=== PATIENT | male | born 1970 | race Caucasian/White ===

== ENCOUNTER 2017-09-08 19:48 | Inpatient (IN) | payer SELFPAY ==
[2017-09-08 21:00] LABS: Anion Gap 11 mmol/L (10-20); BUN (Urea Nitrogen) 23 mg/dL (8.9-20.6); CK (CPK) 669 U/L (30-200); Calc. Creatinine Clearance 0 mL/min (70-130); Calcium 8.5 mg/dL (7.8-10.44); Carbon Dioxide 25 mmol/L (22-29); Chloride 106 mmol/L (98-107); Estimated GFR-MDRD 79; Glucose 84 mg/dL (70-105); Potassium 3.9 mmol/L (3.5-5.1); Sodium 138 mmol/L (136-145)
[2017-09-08 22:49] LABS: ALT (SGPT) 55 U/L (8-55); AST (SGOT) 45 U/L (5-34); Albumin 3.9 g/dL (3.5-5.0); Alkaline Phosphatase 86 U/L (40-150); Bilirubin, Direct 0.2 mg/dL (0.1-0.3); Bilirubin, Total 0.4 mg/dL (0.2-1.2); Protein, Total 6.6 g/dL (6.0-8.3)
[2017-09-08] MEDS ORDERED: Ondansetron ODT 4 MG TAB SL PRN (22:49)
[2017-09-08] MEDS ORDERED: Ondansetron HCl/PF 4 MG/2 ML Vial IVP PRN (22:49)
[2017-09-08] MEDS ORDERED: Acetaminophen 325 MG TAB PO PRN (22:49)
[2017-09-08 22:54] LABS: Troponin I 0.031 ng/mL (< 0.028)
[2017-09-08 23:04] LABS: CKMB 13.1 ng/mL (0-6.6)
[2017-09-08 23:06] VITALS: BMI 29.1
[2017-09-08] MEDS ORDERED: hydrALAZINE 20 MG/ML VIAL SLOW IVP PRN (23:19)
[2017-09-08] MEDS ORDERED: Ondansetron ODT 4 MG TAB PO PRN (23:19)
[2017-09-09 00:11] LABS: ALT (SGPT) 52 U/L (8-55); AST (SGOT) 42 U/L (5-34); Albumin 3.8 g/dL (3.5-5.0); Alkaline Phosphatase 85 U/L (40-150); Bilirubin, Direct 0.3 mg/dL (0.1-0.3); Bilirubin, Total 0.7 mg/dL (0.2-1.2); Protein, Total 6.6 g/dL (6.0-8.3)
[2017-09-09 00:15] LABS: Troponin I 0.038 ng/mL (< 0.028)
[2017-09-09] MEDS: Acetaminophen 325 MG TAB PO PRN ×4 (00:17→23:46)
[2017-09-09] MEDS: Sodium Chloride 0.9% 1,000 ML IV SCH ×3 (00:20→23:39)
[2017-09-09 00:29] LABS: Syphilis Antibody Nonreactive (Nonreactive); Syphilis Antibody Index 0.06 S/CO (<1.00 Non-Reactive)
[2017-09-09 00:30] LABS: HBCM Index 0.08 S/CO (0-0.79); HBSAg Index 0.62 S/CO (0-0.99); HIV (1/2) Antibody/Antigen Non-Reactive (NonReactive); HIV 1/2 INDEX 0.11 S/CO (<1.00); Hep B Surf Ag Non-Reactive S/CO (NonReactive); Hepatitis B Core IGM Abs Non-Reactive (NonReactive)
[2017-09-09 01:29] LABS: Hep B Surf AB Reactive (NonReactive)
[2017-09-09 01:30] LABS: HBSAB Concentration 26.02 mIU/mL
--- NOTE | 2017-09-09 01:41 | HP-2 ---
CODE STATUS: FULL. PRIMARY CARE PHYSICIAN: Rod anders. ATTENDING: Dr. Khurram Ford. RESIDENT: Dr. Rodriguez. CHIEF COMPLAINT: High blood pressure. HISTORY OF PRESENT ILLNESS: This is a 47-year-old male who presents with a 1-2 month history of musc le fatigue following using a dirty needle while shooting meth. More specifically, he states that a c ouple days ago, he tried to arm wrestle and he was more tired than usual and was not able to perform as well as he usually does. He states he has occasional left-sided chest pain and substernal chest p ain at times that comes and goes. He could not quantify how many times the pain occurs. He does ind icate that the pain is reproducible at times. The patient recently has become sober from methampheta mine and marijuana use. Currently, he denies any headaches, any vision changes, any chest pain, palp itations or any edema. He has no other complaints at this time. In the ER, he was given a 1 liter n ormal saline bolus. PAST MEDICAL HISTORY: Significant for hypertension and hepatitis C. PAST SURGICAL HISTORY: He has an orthopedic back surgery and a left arm surgery following a fracture as well as a vasectomy and a pacemaker placement. ALLERGIES: No known drug allergies. MEDICATIONS: None. FAMILY HISTORY: Noncontributory. SOCIAL HISTORY: The patient has at least a [id number]-tnnp smoking history, but he is not currently smo bobbi, he roughly quit 2 weeks ago. Alcohol: No alcohol use. Drugs: He does have a past history of meth and marijuana use, which he says he has been sober for about roughly 3 weeks. REVIEW OF SYSTEMS: General: He denies any fevers or chills. He does admit to a 180 pound weight lo ss in the last 3 months. He does admit to fatigue. Eyes: Denies vision changes or eye pain. ENT: Denies nasal congestion, rhinorrhea, or sore throat. Respiratory: Denies cough, congestion. Cardi ovascular: He does admit to chest pain. He denies palpitations. Gastrointestinal: He denies nause a or vomiting. Genitourinary: He denies incontinence, dysuria. Skin: He does admit to rashes, ecz ematous rashes that he has had lifelong. Musculoskeletal: He denies pain to having tenderness. [place] rologic: He does admit to weakness. He denies numbness. Psychiatric: He denies anxiety or depress ion. PHYSICAL EXAMINATION: VITAL SIGNS: Blood pressure was 179/124, pulse was 70, respirations 20, temperature max 98.9, pulse ox 95% on room air. Current weight is 108 kilos. GENERAL: Alert and oriented x4. Appropriately interactive. EYES: PERRLA. Conjunctivae within normal limits. ENT: Tympanic membranes are pearly bella without bulging or erythema. Nasal mucosa and oropharynx wi thin normal limits. NECK: Supple, no lymphadenopathy, no thyromegaly. CARDIOVASCULAR: Regular rate and rhythm. No murmurs. Radial and pedal pulses equal bilaterally. Lobito howard does have reproducible chest pain to the middle of his chest. RESPIRATORY: Normal effort, no retractions. Clear lungs to auscultation bilaterally. SKIN: Warm and dry. He does have lesions, specifically on his right steel, his left forearm that loo ked to be from eczema. ABDOMEN: Soft, nontender to palpation. Bowel sounds present x4. He did have hepatomegaly present o n exam. EXTREMITIES: No clubbing, cyanosis or edema. MUSCULOSKELETAL: Structure, tone, muscle strength and range of motion within normal limits. NEUROLOGIC: No focal neurologic deficits. Sensation within normal limits. Cranial nerves II-XII gr ossly intact. GCS was 15. PSYCHIATRIC: Appropriate. LABORATORY DATA: White blood cell count 7.3, platelet count 230, hemoglobin 12.9, hematocrit 40.5, M CV 92.5, percent neutrophils was 60.0. CK was 7879, CK-MB of 16, troponin I was 0.024. Sodium 139, potassium 3.9, chloride 106, bicarbonate 25, BUN 27, creatinine 1.19, glucose 88, calcium was 8.8. U rinalysis was clean with trace amount of blood. UDS was positive for cannabinoids. His EKG showed normal sinus rhythm with PACs. ASSESSMENT AND PLAN: A 47-year-old male who presents with: 1. Rhabdomyolysis. We will give him IV fluids at 200 mL per hour as we do not know he has CHF histo ry. We will also trend his CK. 2. Hypertensive urgency. Continuous tele monitoring. Also, initiate amlodipine tomorrow morning. We will give him p.r.n. hydralazine for SBP greater than 180. 3. Hepatitis C. We have LFTs pending, hepatitis C, HIV, RPR, right upper quadrant ultrasound and he patitis B studies pending as well. 4. Polysubstance abuse. He has been 3 weeks sober. We have recommended cessation and continued cou nseling for that. 5. IV drug use. See #3 as above. 6. Acute kidney injury versus chronic kidney disease. IV fluids. We will trend his BMP. 7. Status post pacemaker. We will check a BNP to understand why he had a pacemaker plus and AICD. We will request records from [facility] in [place] to determine the etiology of the pacemaker placeme nt. 8. Disposition and length of hospital stay will be inpatient tele and two. Symptomatic medications will be provided. History and physical exam as well as management has been discussed with Dr. Ford.
[2017-09-09 02:43] LABS: Troponin I 0.022 ng/mL (< 0.028)
[2017-09-09 02:46] LABS: Anion Gap 10 mmol/L (10-20); BUN (Urea Nitrogen) 19 mg/dL (8.9-20.6); CK (CPK) 540 U/L (30-200); Calc. Creatinine Clearance 145 mL/min (70-130); Calcium 8.7 mg/dL (7.8-10.44); Carbon Dioxide 27 mmol/L (22-29); Chloride 108 mmol/L (98-107); Estimated GFR-MDRD 87; Glucose 107 mg/dL (70-105); Potassium 3.6 mmol/L (3.5-5.1); Sodium 141 mmol/L (136-145)
--- NOTE | 2017-09-09 07:44 | ULT ---
GALLBLADDER ULTRASOUND: Date: 09/09/17 HISTORY: Enlarged liver, right upper quadrant pain. FINDINGS: Real-time imaging of the right upper quadrant demonstrates a normal appearing gallbladder. The common duct is 3.0 mm. Visualized liver parenchyma shows no focal abnormalities. Technologist reports a neg ative ultrasound Elizabeth's sign. Liver measures 18.6 cm in length. No focal masses. Right kidney is normal in size and not obstructed. An echogenic area within the upper pole of the rig ht kidney is potentially a nonshadowing stone. There is a 1.9 cm right renal cyst present. Pancreas i s partially obscured. IMPRESSION: 1. Liver size upper limits of normal. 2. 1.9 x 2.0 cm right renal cyst. 3. Echogenic focus in the upper pole of the right kidney, possibly representing a nonshadowing stone . POS: [facility]
--- NOTE | 2017-09-09 08:33 | PDOC.FM ---
- Subjective Subjective: Patient resting in bed comfortably this morning. C/o headache that is being controlled with tylenol. No acute events overnight. Blood pressure has been elevated since admission. - Objective MAR Reviewed: Yes Vital Signs & Weight: Vital Signs (12 hours) Temp Pulse Resp BP Pulse Ox 09/09/17 03:44 98.0 F 61 18 155/97 H 96 09/09/17 00:19 161/105 H 09/08/17 22:38 98.6 F 65 18 171/108 H 95 Weight Weight 105.8 kg I&O: 09/08/17 09/09/17 09/10/17 06:59 06:59 06:59 Intake Total 1000 Output Total 2150 Balance -1150 Result Diagrams: 09/09/17 02:03 <Ruiz Sandoval - Last Filed: 09/09/17 08:30> - Objective Vital Signs & Weight: Vital Signs (12 hours) Temp Pulse Resp BP Pulse Ox 09/09/17 08:42 67 09/09/17 08:25 98.7 F 67 20 179/113 H 96 09/09/17 03:44 98.0 F 61 18 155/97 H 96 09/09/17 00:19 161/105 H Weight Weight 105.8 kg I&O: 09/08/17 09/09/17 09/10/17 06:59 06:59 06:59 Intake Total 1000 Output Total 2150 Balance -1150 Result Diagrams: 09/09/17 02:03 <Khalif Adame - Last Filed: 09/09/17 11:02> Phys Exam - Physical Examination Constitutional: NAD HEENT: moist MMs Respiratory: no wheezing, no rales Cardiovascular: RRR, no significant murmur Gastrointestinal: soft, non-tender Neurological: moves all 4 limbs Psychiatric: normal affect, A&O x 3 <Ruiz Sandoval - Last Filed: 09/09/17 08:30> Dx/Plan (1) Rhabdomyolysis Code(s): M62.82 - RHABDOMYOLYSIS Status: Acute QualifierTitle: Rhabdomyolysis type: non-traumatic Qualified Code(s): M62.82 - Rhabdomyolysis Plan: CK in ER found to be 7900. After fluids, subsequent rechecks were 670 and 540. Continue NS at 200 and recheck this PM (2) Hypertension Code(s): I10 - ESSENTIAL (PRIMARY) HYPERTENSION Status: Acute Plan: Does not take medication at home. Presented in hypertensive urgency controlled with IV PRN medication. Amlodipine has been started this admission (3) History of hepatitis C Code(s): Z86.19 - PERSONAL HISTORY OF OTHER INFECTIOUS AND PARASITIC DISEASES Status: Acute Plan: History of IV drug use. Labs show he is negative for syphilis and HIV and is immune to Hep B (4) Polysubstance abuse Code(s): F19.10 - OTHER PSYCHOACTIVE SUBSTANCE ABUSE, UNCOMPLICATED Status: Chronic Plan: History of meth abuse. He reports last use was 3 weeks ago (5) AICD (automatic cardioverter/defibrillator) present Code(s): Z95.810 - PRESENCE OF AUTOMATIC (IMPLANTABLE) CARDIAC DEFIBRILLATOR Status: Chronic Plan: Unknown reason for placement. PATTI sent to [facility] for further history - Plan Plan: Plan: -Continue fluids and trend CK -RUQ US today <Ruiz Sandoval - Last Filed: 09/09/17 08:30> Attending Addendum - Attending Addendum I personally evaluated the patient and discussed the management with Dr. Sandoval. I agree with and repeated the History, Examination, Assessment and Plan documented above with any addition or exceptions noted below. Pt here for weakness. At not time did he have any chest pain, shortness of breath, feeling of impending doom, palpatations, nausea, diaphoresis, etc. He is currently asymptomatic and in good spirits. Denies cp/sob/n/v/f/c. Elevated TnI likely secondary to BP, monitor, repeat ECG as none available for me to view. AICD vs PM. He says this is because "drugs burned out my receptors on my heart. " Records requested from [facility]. HTN urgency vs emergency - Norvasc increased, will add HCTZ tomorrow. Rhabdo. Improving, continue fluids. Hep C with LFTs. RUQ sono pending Dispo pending records and consider additional cardiac workup if any symptoms. <Khalif Adame - Last Filed: 09/09/17 11:02>
[2017-09-09] MEDS ORDERED: Amlodipine 5 MG TAB PO SCH (09:00)
[2017-09-09] MEDS ORDERED: Amlodipine 10 MG TAB PO SCH ×2 (12:00)
--- NOTE | 2017-09-09 12:33 | RAD ---
PORTABLE CHEST: History: Evaluation of pacemaker or internal defibrillator device. FINDINGS: Heart size within normal limits. Mediastinal structures are unremarkable. The lungs are clear of infi ltrates. A pacemaker is present. IMPRESSION: Transvenous pacemaker. No active intrathoracic disease. POS: [facility]
[2017-09-10] MEDS ORDERED: Cyclobenzaprine 10 MG TAB PO SCH (02:30)
[2017-09-10] MEDS ORDERED: Ketorolac Tromethamine 30 MG/ML VIAL IVP SCH (02:30)
[2017-09-10 07:17] LABS: Anion Gap 13 mmol/L (10-20); BUN (Urea Nitrogen) 10 mg/dL (8.9-20.6); CK (CPK) 242 U/L (30-200); Calc. Creatinine Clearance 157 mL/min (70-130); Calcium 9.3 mg/dL (7.8-10.44); Carbon Dioxide 23 mmol/L (22-29); Chloride 106 mmol/L (98-107); Estimated GFR-MDRD Greater than 90; Glucose 92 mg/dL (70-105); Potassium 3.9 mmol/L (3.5-5.1); Sodium 138 mmol/L (136-145)
[2017-09-10] MEDS ORDERED: traMADol HCl 50 MG TAB PO PRN (08:38)
--- NOTE | 2017-09-10 08:41 | PDOC.FM ---
- Subjective Subjective: Patient c/o headache overnight. Given flexeril and toradol by night team with resolution. He has no headaches this AM. Blood pressure is improving since admission. - Objective MAR Reviewed: Yes Vital Signs & Weight: Vital Signs (12 hours) Temp Pulse Resp BP Pulse Ox 09/10/17 08:00 97.5 F L 79 18 187/127 H 97 09/10/17 04:00 97.6 F 66 18 140/102 H 09/09/17 23:19 98 F 68 18 152/88 H 96 09/09/17 20:48 159/113 H Weight Admit Weight 105.8 kg Weight 105.8 kg I&O: 09/09/17 09/10/17 09/11/17 06:59 06:59 06:59 Intake Total 1000 8120 Output Total 2150 8400 Balance -1150 -280 Result Diagrams: 09/10/17 04:47 <Ruiz Sandoval - Last Filed: 09/10/17 08:39> - Objective Vital Signs & Weight: Vital Signs (12 hours) Temp Pulse Resp BP Pulse Ox 09/10/17 12:00 98.2 F 73 20 169/117 H 96 09/10/17 08:51 79 09/10/17 08:00 98.2 F 79 20 187/127 H 97 09/10/17 04:00 97.6 F 66 18 140/102 H Weight Admit Weight 105.8 kg Weight 105.8 kg I&O: 09/09/17 09/10/17 09/11/17 06:59 06:59 06:59 Intake Total 1000 8120 Output Total 2150 8400 Balance -1150 -280 Result Diagrams: 09/10/17 04:47 <Khalif Adame - Last Filed: 09/10/17 15:33> Phys Exam - Physical Examination Constitutional: NAD HEENT: moist MMs Respiratory: no wheezing, no rales Cardiovascular: RRR, no significant murmur Gastrointestinal: soft, non-tender Musculoskeletal: no edema Neurological: moves all 4 limbs Psychiatric: normal affect, A&O x 3 <Ruiz Sandoval - Last Filed: 09/10/17 08:39> Dx/Plan (1) Rhabdomyolysis Code(s): M62.82 - RHABDOMYOLYSIS Status: Acute QualifierTitle: Rhabdomyolysis type: non-traumatic Qualified Code(s): M62.82 - Rhabdomyolysis Plan: CK in ER found to be 7900. After fluids, subsequent rechecks were 670 and 540. Repeat CK this morning is 242. At this time, we will d/c IVF (2) Hypertension Code(s): I10 - ESSENTIAL (PRIMARY) HYPERTENSION Status: Acute Plan: Does not take medication at home. Presented in hypertensive urgency controlled with IV PRN medication. Amlodipine has been started this admission. Will start HCTZ this morning as his pressures remain elevated. (3) History of hepatitis C Code(s): Z86.19 - PERSONAL HISTORY OF OTHER INFECTIOUS AND PARASITIC DISEASES Status: Acute Plan: History of IV drug use. Labs show he is negative for syphilis and HIV and is immune to Hep B OP f/u for Hep C treatment (4) Polysubstance abuse Code(s): F19.10 - OTHER PSYCHOACTIVE SUBSTANCE ABUSE, UNCOMPLICATED Status: Chronic Plan: History of meth abuse. He reports last use was 3 weeks ago (5) AICD (automatic cardioverter/defibrillator) present Code(s): Z95.810 - PRESENCE OF AUTOMATIC (IMPLANTABLE) CARDIAC DEFIBRILLATOR Status: Chronic Plan: Unknown reason for placement. PATTI sent to [facility] for further history - Plan Plan: Plan: -patient remains asymptomatic- denies CP, SOB, palpitations, diaphoresis, LE edema -discharge pending records from [facility] for cardiac history -CK has trended down -d/c IVF -BP will need to be further titrated with HCTZ -outpatient f/u with GI for Hep C treatment <Ruiz Snadoval - Last Filed: 09/10/17 08:39> Attending Addendum - Attending Addendum I personally evaluated the patient and discussed the management with Dr. Sandoval. I agree with and repeated the History, Examination, Assessment and Plan documented above with any addition or exceptions noted below. Due to variation in story will go ahead and stress patient. After reviewing records no stress in > 4 years, with continued drug use in the interim and bumped troponins. <Khalif Adame - Last Filed: 09/10/17 15:33>
[2017-09-10] MEDS: Amlodipine 10 MG TAB PO SCH (08:51)
[2017-09-10] MEDS: Hydrochlorothiazide 25 MG TAB PO SCH (08:55)
[2017-09-10] MEDS ORDERED: Labetalol HCl 100 MG/20 ML VIAL SLOW IVP PRN (13:56)
[2017-09-10] MEDS ORDERED: hydrALAZINE 20 MG/ML VIAL SLOW IVP PRN (13:58)
[2017-09-10] MEDS: Sodium Chloride 0.9% 1,000 ML IV SCH ×2 (19:17→19:18)
[2017-09-10] MEDS ORDERED: Polyethylene Glycol 3350 17 GM Packet PO PRN (20:55)
[2017-09-11 08:14] VITALS: TEMP 97.8
--- NOTE | 2017-09-11 08:54 | PDOC.FM ---
- Subjective Subjective: Patient requesting to go home today. He is agreeable to stress test this morning. No acute events overnight per nursing. No chest pain or headache - Objective MAR Reviewed: Yes Vital Signs & Weight: Vital Signs (12 hours) Temp Pulse Resp BP Pulse Ox 09/11/17 08:10 97.8 F 74 17 160/112 H 97 09/11/17 03:50 97.9 F 69 18 140/89 95 09/11/17 00:00 153/112 H Weight Admit Weight 105.8 kg Weight 97.3 kg I&O: 09/10/17 09/11/17 09/12/17 06:59 06:59 06:59 Intake Total 8120 480 Output Total 8400 700 Balance -280 -220 Result Diagrams: 09/10/17 04:47 <Ruiz Sandoval - Last Filed: 09/11/17 08:52> - Objective Vital Signs & Weight: Vital Signs (12 hours) Temp Pulse Resp BP BP Pulse Ox 09/11/17 13:55 148/94 H 09/11/17 12:30 80 170/119 H 09/11/17 12:27 97.8 F 80 17 170/119 H 97 Weight Admit Weight 105.8 kg Weight 97.3 kg I&O: 09/10/17 09/11/17 09/12/17 06:59 06:59 06:59 Intake Total 8120 480 Output Total 8400 700 Balance -280 -220 Result Diagrams: 09/10/17 04:47 <Mila Sanford - Last Filed: 09/11/17 21:27> Phys Exam - Physical Examination Constitutional: NAD HEENT: moist MMs Respiratory: no wheezing, no rales Cardiovascular: RRR, no significant murmur Gastrointestinal: soft, non-tender Neurological: moves all 4 limbs Psychiatric: normal affect, A&O x 3 <Ruiz Sandoval - Last Filed: 09/11/17 08:52> Dx/Plan (1) Rhabdomyolysis Code(s): M62.82 - RHABDOMYOLYSIS Status: Resolved QualifierTitle: Rhabdomyolysis type: non-traumatic Qualified Code(s): M62.82 - Rhabdomyolysis Plan: CK in ER found to be 7900. After fluids, subsequent rechecks were 670 and 540. Repeat CK this morning is 242. At this time, we will d/c IVF (2) Hypertension Code(s): I10 - ESSENTIAL (PRIMARY) HYPERTENSION Status: Acute Plan: Does not take medication at home. Presented in hypertensive urgency controlled with IV PRN medication. Amlodipine and HCTZ has been started this admission. No chest pain, sob, headaches, changes in vision. (3) History of hepatitis C Code(s): Z86.19 - PERSONAL HISTORY OF OTHER INFECTIOUS AND PARASITIC DISEASES Status: Acute Plan: History of IV drug use. Labs show he is negative for syphilis and HIV and is immune to Hep B OP f/u for Hep C treatment (4) Polysubstance abuse Code(s): F19.10 - OTHER PSYCHOACTIVE SUBSTANCE ABUSE, UNCOMPLICATED Status: Chronic Plan: History of meth abuse. He reports last use was 3 weeks ago (5) AICD (automatic cardioverter/defibrillator) present Code(s): Z95.810 - PRESENCE OF AUTOMATIC (IMPLANTABLE) CARDIAC DEFIBRILLATOR Status: Chronic Plan: Unknown reason for placement - Plan Plan: Plan: -stress test this morning with likely discharge <Ruiz Sandoval - Last Filed: 09/11/17 08:52> Attending Addendum - Attending Addendum I personally evaluated the patient and discussed the management with Dr. Sandoval at 0750. I agree with the History, Examination, Assessment and Plan documented above with any addition or exceptions noted below. CP- stress negative today HTN-started meds and improved after norvasc and hctz. Needs close o/p followup to titrate meds <Mila Sanford - Last Filed: 09/11/17 21:27>
[2017-09-11] MEDS ORDERED: Polyethylene Glycol 3350 17 GM Packet PO SCH (09:00)
[2017-09-11] MEDS: Amlodipine 10 MG TAB PO SCH (12:30)
[2017-09-11] MEDS: Hydrochlorothiazide 25 MG TAB PO SCH (12:30)
--- NOTE | 2017-09-11 14:15 | NM ---
NUCLEAR MEDICINE CARDIAC MYOCARDIAL PERFUSION SPECT EJECTION FRACTION STUDY WALL MOTION CINE: Date: 09/11/17 HISTORY: 47-year-old hypertensive male smoker presents with acute chest pain. TECHNIQUE: Number of days: 2 Rest study: Tc99m sestamibi (Cardiolite) dose: 31.0 mCi Exercise stress: treadmill. Stress study: Tc99m sestamibi (Cardiolite) dose: 27.0 mCi FINDINGS: CARDIAC (MYOCARDIAL PERFUSION) SPECT There are no reversible myocardial perfusion defects. EJECTION FRACTION STUDY EF = 51% WALL MOTION CINE No focal wall motion abnormality identified. IMPRESSION: No evidence of reversible ischemia. WALDEMAR White POS: [facility]
[2017-09-11 16:23] VITALS: BP 148/94
--- NOTE | 2017-09-13 02:34 | DIS-2 ---
DATE OF ADMISSION: 09/08/2017 DATE OF DISCHARGE: 09/11/2017 RESIDENT: Ruiz Sandoval M.D. ADMITTING ATTENDING: Khurram Ford M.D. DISCHARGE ATTENDING: Khalif Adame MD CONSULTS: None. PROCEDURES: Nuclear medicine stress test showing no evidence of reversible ischemia with an ejection fraction of 51% and no focal wall motion abnormalities. PRIMARY DIAGNOSES: 1. Rhabdomyolysis. 2. Atypical chest pain. SECONDARY DIAGNOSES: 1. History of hepatitis C. 2. Polysubstance abuse including methamphetamines. 3. Unknown cardiac disease status post AICD placement. DISCHARGE MEDICATIONS: 1. Amlodipine 10 mg p.o. daily. 2. Hydrochlorothiazide 12.5 mg p.o. daily. DISCONTINUED MEDICATIONS: None. HISTORY OF PRESENT ILLNESS/HOSPITAL COURSE: A 47-year-old male with a past medical history of unknown cardiac disease requiring AICD placement and polysubstance abuse presenting with muscle weakness. The patient has noticed diffuse muscle weakness for the last 1-2 weeks. He also complained of occasional left-sided chest pain and substernal chest pressure that comes and goes upon admission. He cannot quantify how many times the pain occurs throughout the day, but does state it is reproducible. The patient was admitted for rhabdomyolysis due to an initial CK of 7879. The patient was started on IV fluids at 200 mL an hour, which trended down to 242 the day before discharge. Patients fatigue resolved. Otherwise, patient's labs were normal. CBC, BMP all within normal limits. The patient has an unknown cardiac history and concerning admitting symptoms. Records were reviewed from outside hospital at which patient had his pacemaker placed. However, these records did not elucidate why he had the device placed and included no recent cardiac workups. Due to this lack of information, the patient was given a cardiac stress test for which he passed. The patient was back to baseline upon discharge. DISPOSITION: Stable. DISCHARGE INSTRUCTIONS: 1. Location: Home. 2. Diet: Heart healthy. 3. Activity: As tolerated. 4. Follow up with [facility] in 5 to 7 days. Attending addendum: Note EF was 51%. MTDD
--- NOTE | 2017-10-24 22:36 | STRESS ---
Acquisition Time: 2017-09-11 10:31:09 Total Exercise Time: 00:09:39 Test Indications: CHEST PAIN Medications: Protocol: ASHISH Max HR: 155 BPM 90% of Pred: 172 BPM Max BP: 180/118 mmHG Max Work Load: 12.2 METS RESTING ECG: NORMAL SINUS RHYTHM AT 82BPM SYMPTOMS: NONE NORMAL BP RESPONSE ECTOPY: RARE PVC'S ECG STRESS: NO SIGNIFICANT CHANGES INTERPRETATION: NEGATIVE GXT/AWAIT NUCLEAR IMAGES FOR DEFINITIVE DIAGNOSIS Confirmed by RICKI BURRELL M.D. ([id number] on 10/24/2017 10:35:49 PM Referred By: MD Shon JOHNSON Confirmed By:RICKI BURRELL M.D.
== END 2017-09-11 17:12 | disposition home or self-care (01) | DRG 558 ==
LOC: ERS 19:48 → 2NO 20:21 → OBSVTOIN 20:21
PROVIDERS: ADMIT Family Medicine; ATTEND Family Medicine
DX: M62.82 Rhabdomyolysis (principal); I13.0 Hypertensive heart and chronic kidney disease with heart failure and stage 1 through stage 4 chronic kidney disease, or unspecified chronic kidney disease; I50.9 Heart failure, unspecified; I16.0 Hypertensive urgency; B19.20 Unspecified viral hepatitis C without hepatic coma; Z95.0 Presence of cardiac pacemaker; N18.9 Chronic kidney disease, unspecified; F17.200 Nicotine dependence, unspecified, uncomplicated; F19.10 Other psychoactive substance abuse, uncomplicated
CPT/HCPCS: 36415; 71045; 76705; 78452; 80048; 80076; 82550; 83880; 84443; 84484; 86705; 86706; 86780; 87340; 87389; 87521; 93005; 93010; 93017; 96360; A4216; A9500; J0360; J1885

== ENCOUNTER 2019-02-27 11:59 | Observation (INO) | payer SELFPAY ==
[2019-02-27 13:18] LABS: Troponin I Less than 0.010 ng/mL (< 0.028)
--- NOTE | 2019-02-27 13:56 | HP ---
PRIMARY CARE PHYSICIAN: [facility] Call admission. REASON FOR ADMISSION: Transferred from [place] [facility] for chest pain. HISTORY OF PRESENT ILLNESS: A 48-year-old male, who currently lives at [facility], who came to emergency room at [place] with complaint of chest pain. The patient was doing his routine work and he was having substernal chest pain associated with shortness of breath, diaphoresis, and mild nausea, but no vomiting. He denies any radiation of pain. His intensity of pain is about 5/10. Pain persisted up until in the emergency room until he was given nitroglycerin. After that, pain was relieved. He denies any relation of chest pain with food or respiration. He denies any exertional chest pain. He denies any palpitation, dyspnea on exertion, orthopnea, PND, leg swelling, dizziness, or syncope. He denies any fever, chills, cough, or upper respiratory symptoms. He denies any lower respiratory symptoms including flu, cough, shortness of breath, or wheezing. He denies any recent travel or immobilization. The patient reports that he is in [facility] for last 2 to 3 days. Four days ago, he was in [place]. At that time, he used methamphetamine. He denies any other illicit drug abuse. He is smoking about 2 cigarettes on daily basis. Currently, the patient is in chest pain-free. He was transferred from [place] [facility], where he had EKG, which was showing pacemaker rhythm. Chest x-ray was normal. Routine blood test including cardiac enzyme had negative. REVIEW OF SYSTEMS: CONSTITUTIONAL: Negative for weight loss or gain, ability to conduct usual activities. SKIN: Negative for rash, itching. EYES: Negative for double vision, pain. ENT/MOUTH: Negative for nose bleeding, neck stiffness, pain, tenderness. CARDIOVASCULAR: Negative for palpitations, dyspnea on exertion, orthopnea. RESPIRATORY: Negative for shortness of breath, wheezing, cough, hemoptysis, fever or night sweats. GASTROINTESTINAL: Negative for poor appetite, abdominal pain, heartburn, nausea, vomiting, constipation, or diarrhea. GENITOURINARY: Negative for urgency, frequency, dysuria, nocturia. MUSCULOSKELETAL: Negative for pain, swelling. NEUROLOGIC/PSYCHIATRIC: Negative for anxiety, depression. ALLERGY/IMMUNOLOGIC: Negative for skin rash, bleeding tendency. Please see my HPI for pertinent positives and negatives. All other review of systems reviewed and negative except as mentioned in the HPI. PAST MEDICAL HISTORY: Cardiac pacemaker; chronic congestive heart failure, type of EF not known; chronic hepatitis C; history of polysubstance abuse; hypertension. PAST SURGICAL HISTORY: Pacemaker placement in 2018, lumbar spine surgery. PAST PSYCHIATRIC HISTORY: Anxiety and depression. SOCIAL HISTORY: The patient is smoking about few cigarettes on everyday basis. He also abused methamphetamine and last use few days ago up until he was living in [facility]. He denies any alcohol abuse. FAMILY HISTORY: No family history of coronary artery disease, stroke, or cancer. ALLERGIES: NO KNOWN DRUG ALLERGY. CURRENT HOME MEDICATIONS: 1. Clonidine 0.1 mg three times daily. 2. Lisinopril 20 mg daily. 3. Metoprolol tartrate 25 mg daily. 4. Aldactone 100 mg daily. 5. Hydrochlorothiazide 25 mg p.o. daily. 6. Lasix 40 mg p.o. daily. EMERGENCY ROOM COURSE: The patient is given Tylenol, aspirin, nitroglycerin 0.4 mg sublingual x2. PHYSICAL EXAMINATION: VITAL SIGNS: On arrival, blood pressure 133/94, pulse 60, respiratory rate 18, and saturation 97% on room air. Weight of 117.9 kg. GENERAL: The patient is currently alert and awake. No obvious acute distress. HEENT: Head; normocephalic, atraumatic. Eyes; pupils round, reactive to light. Extraocular muscle intact. ENT; oropharynx within normal limits. Moist mucous membranes. No oral lesion. No pharyngeal erythema. No exudate. NECK: Supple. No JVD. No thyromegaly. No carotid bruit. No jugular venous distention. LUNGS: Clear to auscultation without any rhonchi or rales. CARDIAC: S1, S2 regular. No murmur. No gallop. No rub. ABDOMEN: Soft. Bowel sounds present. Nontender. Nondistended. No organomegaly. No mass. No suprapubic tenderness. BACK: Unremarkable. No CVA tenderness. EXTREMITIES: Upper extremities; passive movement of all joints are normal. Lower extremity, no edema. Good distal pulsation. No calf tenderness. SKIN: No skin rash. HEMATOLOGIC: No lymphadenopathy. NEUROLOGIC: Nonfocal examination. SIGNIFICANT LABS: EKG, pacemaker rhythm. Chest x-ray based on my review, no acute cardiopulmonary process. CBC; WBC 7.0, hemoglobin 13.4, and platelet 239. BMP; sodium 140, potassium 3.8, chloride 105, carbon dioxide 25, BUN 18, creatinine 1.35, glucose 88, calcium 8.8. LFT; AST 31, ALT 39, alkaline phosphatase 66, albumin 4.0. Troponin negative. BNP 157.4. ASSESSMENT/PLAN: 1. Chest pain. The patient's chest pain description is atypical. The patient had a stress test about year and half ago. At that time, it was normal. Currently, troponin is negative. His EKG is nondiagnostic. At this point, we will perform exercise Cardiolite stress test for diagnostic reason. We will do serial cardiac enzymes x3. We will check lipid profile for risk stratification. We will use nitroglycerin on p.r.n. basis. We will continue with aspirin 325 mg p.o. daily. 2. History of congestive heart failure. The patient's BNP is elevated. The patient is euvolemic. Type of EF is not known and that is why we will obtain echocardiography to assess EF and other structural abnormality. We will continue lisinopril 10 mg p.o. daily, Toprol-XL 25 mg p.o. daily, Aldactone 100 mg p.o. daily, and Lasix 40 mg p.o. daily. 3. History of amphetamine use. We will check urine drug screen. 4. Tobacco abuse disorder. Smoking cessation counseling given, healthy lifestyle measures discussed with the patient. 5. Hypertension. Continue lisinopril, Toprol-XL, Aldactone, Lasix as per home dosage, clonidine p.r.n. basis. 6. Deep venous thrombosis prophylaxis not needed because we are expecting discharge in 24 hours. 7. Gastrointestinal GI prophylaxis. Pepcid 20 mg p.o. b.i.d. CODE STATUS: The patient is full code. The patient does not have any surrogate decision maker. DISPOSITION PLAN: Based on clinical course, we are expecting the patient's stay in hospital 24 hours. Plan of care discussed with the patient in detail. Job ID: [id number]
[2019-02-27] MEDS ORDERED: Ondansetron PF 4 MG/2 ML Vial IVP PRN (14:24)
[2019-02-27] MEDS ORDERED: Ondansetron ODT 4 MG TAB PO PRN (14:24)
[2019-02-27] MEDS ORDERED: Temazepam 15 MG CAP PO PRN (14:24)
[2019-02-27] MEDS ORDERED: HYDROcodone/Acetaminophen 5/325 mg Tablet PO PRN (14:24)
[2019-02-27] MEDS ORDERED: cloNIDine 0.1 MG TAB PO PRN (14:24)
[2019-02-27] MEDS ORDERED: Zolpidem Tartrate 5 MG TAB PO PRN (14:24)
[2019-02-27] MEDS ORDERED: Senokot S 8.6-50 MG TAB PO PRN (14:24)
[2019-02-27] MEDS ORDERED: Loperamide HCl 2 MG CAP PO PRN (14:24)
[2019-02-27] MEDS ORDERED: Cepastat Lozenges 1 LOZ PO PRN (14:24)
[2019-02-27] MEDS ORDERED: Bisacodyl 10 MG SUPP PR PRN (14:24)
[2019-02-27] MEDS ORDERED: Acetaminophen 325 MG TAB PO PRN (14:24)
[2019-02-27] MEDS ORDERED: Loratadine 10 MG TAB PO PRN (14:24)
[2019-02-27] MEDS ORDERED: Sodium Chloride 0.65% Nasal 44 ML BOT EA NARE PRN (14:24)
[2019-02-27] MEDS ORDERED: Calcium Carbonate 500 MG ChewTAB PO PRN (14:24)
[2019-02-27] MEDS ORDERED: Diabetic Tussin 200 MG/10 ML UDCUP PO PRN (14:24)
[2019-02-27] MEDS ORDERED: Nitroglycerin 0.4 MG TAB (25 Tab Bottle) SL PRN (14:24)
[2019-02-27] MEDS ORDERED: hydrALAZINE 20 MG/ML VIAL SLOW IVP PRN (14:24)
[2019-02-27] MEDS ORDERED: Artificial Tears 18 DROP/0.9 ML EA EYE PRN (14:24)
[2019-02-27 14:27] VITALS: BMI 32.1
[2019-02-27 15:50] LABS: Troponin I 0.013 ng/mL (< 0.028)
[2019-02-27 18:21] LABS: Cocaine Metabolite Screen Not Detected (NotDetected); Medtox Reader # READER 4; Methamphetamine Not Detected (NotDetected); Opiate Screen Not Detected (NotDetected); Phencyclidine (PCP) Not Detected (NotDetected); THC/Cannabinoid Screen Detected (NotDetected)
[2019-02-27 18:22] LABS: Amphetamine Not Detected (NotDetected); Barbiturates Screen Not Detected (NotDetected); Benzodiazepine Screen Not Detected (NotDetected); Medtox Control Line Valid? VALID (VALID); Methadone Not Detected (NotDetected); Oxycodone Screen Not Detected (NotDetected); Tricyclic Screen Not Detected (NotDetected)
[2019-02-27] MEDS: Famotidine 20 MG TAB PO SCH (20:55)
[2019-02-28 05:23] LABS: Cardiac Risk 3.7 (Less than 4.5)
[2019-02-28] MEDS ORDERED: Furosemide 40 MG TAB PO SCH (07:30)
[2019-02-28] MEDS ORDERED: Spironolactone 100 MG TAB PO SCH (08:00)
[2019-02-28] MEDS: Famotidine 20 MG TAB PO SCH (08:29)
[2019-02-28] MEDS ORDERED: Lisinopril 10 MG TAB PO SCH (09:00)
[2019-02-28] MEDS ORDERED: Aspirin 325 MG TAB PO SCH (09:00)
--- NOTE | 2019-02-28 11:15 | NM ---
NM Cardiac Stress W EF WF History: Chest pain Comparison: Cardiac stress test 2018 Findings: Stress and rest performed after the intravenous administration of 30.9 and 10.3 mCi technet ium 99m sestamibi, respectively. No scar or ischemia. Normal wall motion. Calculated ejection fraction is normal at 61%. Impression: Normal cardiac stress test and ejection fraction.
[2019-02-28 11:57] VITALS: BP 165/105; TEMP 97.7
--- NOTE | 2019-02-28 12:14 | DIS ---
DATE OF ADMISSION: 02/27/2019 DATE OF DISCHARGE: 02/28/2019 PRIMARY CARE PHYSICIAN: [facility] Call Admission. DISCHARGE DISPOSITION: Home. PRIMARY DISCHARGE DIAGNOSES: 1. Chest pain. 2. Ruled out acute coronary syndrome. SECONDARY DISCHARGE DIAGNOSES: 1. History of polysubstance abuse. 2. Obesity with BMI 31. 3. Moderate aortic regurgitation. 4. Hypertension. 5. History of hepatitis C. 6. Cannabis abuse. 7. AICD in place. PRIMARY PROCEDURE/OPERATION: None. RADIOLOGICAL INVESTIGATION: Echocardiography showed normal EF. Chest x-ray was normal. Stress test came back negative. SIGNIFICANT LABORATORY DATA: LDL 95. Cardiac enzyme negative. CBC and BMP done at other emergency room, which were normal. DISCHARGE MEDICATIONS: The patient will continue all his previous medications; 1. Clonidine 0.1 mg p.o. t.i.d. p.r.n. 2. Lisinopril 20 mg p.o. daily. 3. Toprol-XL 25 mg p.o. daily. 4. Ecotrin 81 mg p.o. daily. CONTRAINDICATION: None. CODE STATUS: Full code. INPATIENT LITIGATION SERVICES MANAGER: None. ALLERGIES: NO KNOWN DRUG ALLERGIES. DISCHARGE PLAN: Posthospital, the patient will follow up with primary care physician. HOSPITAL COURSE: A 48-year-old male with above-mentioned medical problem, who was admitted by me yesterday. Please see my HPI for further details. The patient was presented to [facility] with complaint of chest pain. His chest pain description was atypical. His troponins were negative. All blood test done at [facility] was negative. His EKG was pacemaker rhythm and nondiagnostic. His telemetry remained unremarkable. We admitted to the hospital for observation and we did stress test which was normal. Echocardiography showed normal EF and moderate aortic regurgitation. The patient will continue all his previous medications. Healthy lifestyle measure discussed with the patient. I have seen and examined the patient at bedside today. REVIEW OF SYSTEMS: All review of systems reviewed with him and negative. PHYSICAL EXAMINATION: VITAL SIGNS: Today, temperature 97.5, pulse 60, respiratory rate 18, saturation 96%, blood pressure 137/92. GENERAL: The patient is currently alert, awake, in no acute distress. HEENT: Head is normocephalic, atraumatic. LUNGS: Clear without any rhonchi or rales. CARDIAC: S1, S2. Regular without any murmur. ABDOMEN: Soft and benign without any tenderness. EXTREMITIES: No edema. NEUROLOGIC: Nonfocal examination. CONDITION ON DISCHARGE: Overall, the patient is medically stable for discharge today. Job ID: [id number]
[2019-02-28] MEDS ORDERED: Regadenoson 0.4 MG/5 ML SYRINGE ONE (15:55)
--- NOTE | 2019-03-06 17:16 | EKG ---
Test Reason : Blood Pressure : / mmHG Vent. Rate : 060 BPM Atrial Rate : 060 BPM P-R Int : 212 ms QRS Dur : 088 ms QT Int : 464 ms P-R-T Axes : 014 020 085 degrees QTc Int : 464 ms Atrial-paced rhythm with prolonged AV conduction Abnormal ECG Confirmed by NIMO WELCH ([id number]), food expeditor YARELI GARCIA ([id number] on 03/06/2019 5:15:38 PM Referred By: Confirmed By:NIMO WELCH
== END 2019-02-28 13:02 | disposition home or self-care (01) ==
LOC: ERS 11:59 → 2SW 12:18
PROVIDERS: ADMIT Internal Medicine; ATTEND Internal Medicine
DX: R07.2 Precordial pain (principal); I11.0 Hypertensive heart disease with heart failure; I50.9 Heart failure, unspecified; I35.1 Nonrheumatic aortic (valve) insufficiency; F17.210 Nicotine dependence, cigarettes, uncomplicated; F41.8 Other specified anxiety disorders; F32.9 Major depressive disorder, single episode, unspecified; E66.9 Obesity, unspecified; Z68.31 Body mass index [BMI] 31.0-31.9, adult; Z79.899 Other long term (current) drug therapy; Z95.810 Presence of automatic (implantable) cardiac defibrillator
CPT/HCPCS: 36415; 78452; 80061; 80306; 93005; 93017; 93306; 94760; A9500; G0378; J2785